=== PATIENT | male | born 1975 | race Caucasian/White ===

== ENCOUNTER 2016-03-26 01:05 | Day surgery (SDC) | payer MEDICARE ==
[2016-03-26] VITALS (15 sets, daily range): BP systolic 96–133; BP diastolic 44–91; PULSE 68–86; RESP 16–22; O2SAT 93–100
[~2016-03-26] VITALS: Ht 180.3 cm; Wt 111.4 kg
[~2016-03-26 01:05] MED LIST: AMN100C PO; ASPI-973 PO; ATRV10T PO; CARV3.122 PO; CETI5TAB28 PO; DIGO250T72 PO; DIVA500T6 PO; FURO80TA83 PO; LORA-302 PO; LOSA25TA21 PO; METF500T4 PO; OXCA600T3 PO; SLO64 PO; SPIR25TA3 PO
[2016-03-26] MEDS ORDERED: 0.9% Sodium Chloride 1,000 ML IV PRN (07:31)
[2016-03-26] MEDS ORDERED: Vancomycin Inj 1,000 MG in IV Premix 1 EACH IV ONE (07:35)
[2016-03-26] MEDS ORDERED: Heparin 5,000 Units/500 mL NS Premix IV ONE (10:07)
[2016-03-26] MEDS ORDERED: 0.9% Sodium Chloride 250 ML ONE (10:08)
[2016-03-26] MEDS ORDERED: Bupivacaine-MPF 0.5% 30 mL Inj ONE (10:08)
[2016-03-26 11:03] LABS: BASOPHILS % (AUTO) 1.2 % (0-3); EOSINOPHILS % (AUTO) 2.3 % (0-5); MONOCYTES % (AUTO) 10.4 % (4-12); Mean Corpuscular Hemoglobin 28.6 pg (27.0-35.0); Mean Corpuscular Volume 85.8 fL (81-100); Platelet Count 212 bil/L (150-400)
[2016-03-26] MEDS ORDERED: CHOL10008 PO (11:15)
[2016-03-26 11:18] LABS: INR 1.12 ratio
[2016-03-26] MEDS ORDERED: Vancomycin 1,000 mg/200 mL D5W IV ONE (13:07)
[2016-03-26] MEDS ORDERED: 0.9% Sodium Chloride 1,000 ML ONE (13:10)
[2016-03-26] MEDS ORDERED: Vancomycin 1,000 mg Inj ONE (13:10)
[2016-03-26] MEDS ORDERED: Water for Injection 50 ML IV ONE (13:10)
[2016-03-26] MEDS ORDERED: fentaNYL-PF 50 mCg/mL 2 mL Inj ONE (13:16)
[2016-03-26] MEDS ORDERED: Ondansetron 2 mg/mL 2 mL Inj IVPUSH PRN (14:10)
[2016-03-26] MEDS ORDERED: HYDROcodone-APAP 5-325 mg Tablet PO PRN (14:10)
[2016-03-26] MEDS: 0.9% Sodium Chloride 1,000 ML IV SCH (14:10)
--- NOTE | 2016-03-26 15:22 | OP ---
[address] [address] OPERATIVE REPORT PATIENT: ERNIE MILLS : 1975 MR#: [id number] ADMIT: 03/26/2016 JOB ID: [id number] DATE OF SURGERY: 03/26/2016 PREOPERATIVE DIAGNOSIS(ES): 1. Severe dilated cardiomyopathy with ejection fraction 10% to 15%. 2. [place] [employer] class II heart failure symptoms. POSTOPERATIVE DIAGNOSIS(ES): 1. Severe dilated cardiomyopathy with ejection fraction 10% to 15%. 2. [place] [employer] class II heart failure symptoms. PROCEDURES PERFORMED: 1. Single-chamber primary prevention implantable cardioverter defibrillator implantation. 2. Left upper extremity venogram. 3. Fluoroscopy. SURGEON: Boni Helms MD, electrophysiology attending. UPPER LINING CEMENTER: Jennifer Gotti. IMPLANTED DEVICES: 1. [employer] pulse generator model [id number], serial #[id number]. 2. RV lead single-coil DF4 [employer] 7122Q, 65 cm, serial #[id number]. ANESTHESIA: Bolus dosing of Versed and fentanyl were utilized for an appropriate level of sedation. INDICATION: The patient is a pleasant 40-year-old man with severe dilated cardiomyopathy and advanced heart failure symptomology whose symptoms and ejection fraction have not improved despite the passage of time and optimal medical management. After discussion of the risks and benefits of primary prevention ICD implantation, he opted to proceed. PROCEDURAL DESCRIPTION: Following informed signed consent, the patient was taken to the EP laboratory in a fasting, nonsedated state where he was prepped and draped in the usual sterile fashion. The left infraclavicular region was infiltrated with 40 cc of a 50/50 mixture of bupivacaine and lidocaine. Once adequate anesthesia had been achieved, a 3 cm transverse incision was performed 2 cm below the left clavicle. Dissection was carried down to the pectoralis fascia. A pocket was then fashioned using a combination of electrocautery and blunt dissection. Once adequate hemostasis had been achieved, attempts to access the left axillary vein over the first rib with a micropuncture needle were unsuccessful. A left upper extremity venogram was performed. Under venographic guidance, the vessel was cannulated with a micropuncture needle to deploy a 0.035, 3-mm J-guidewire. Over this, a 7-Cameroonian tear-away sheath was advanced. Once the guidewire was removed, an active fixation single-coil ICD lead was advanced to the RV outflow tract, ultimately the RV apex. The lead was affixed in position using associated active fixation screw. The lead was connected to external analyzer and demonstrated appropriately sensed R waves, impedance, capture threshold. The lead was checked to 10 V and there was no evidence of diaphragmatic stimulation. Once the position and redundancy of the lead had been confirmed with multiple fluoroscopic views, the lead was anchored to the prepectoralis fascia using associated anchoring sleeve and 2-0 Ethibond sutures. The pocket was then copiously irrigated with antibiotic solution. The lead was connected to a generator, and the generator was placed into the pocket. It was affixed to the floor of the pocket using 1-0 Ti-Cron suture. The incision was then closed with running layers of absorbable suture. The wound was dressed with skin adhesive and a small dressing. At the end of the procedure, needle, sponge and instrument counts were all correct. COMPLICATIONS: None. ESTIMATED BLOOD LOSS: Negligible. DEVICE MEASURED DATA: 11.7 mV, 560 ohms, 0.75 V at 0.5 msec. FINAL PROGRAM PARAMETERS: 1. VVI 40 beats per minute. 2. VF zone at 187 beats per minute. ATP during charge, followed by shocks. 3. VT2 zone at 171 beats per minute. ATP x3, followed by shocks. 4. VT monitor zone at 150 beats per minute. IMPRESSION: Successful single-chamber primary prevention implantable cardioverter defibrillator implantation. PLAN: 1. Stat portable chest x-ray. 2. PA and lateral chest x-ray in the morning. 3. Device interrogation in the morning. 4. IV vancomycin through tomorrow. 5. Doxycycline 100 mg p.o. daily x7 days. 6. Wound check in one week. ATTENDING STATEMENT: Boni Helms MD, electrophysiology attending, was present for and supervised/performed all aspects of this procedure.
--- NOTE | 2016-03-26 16:08 | DRSVH ---
PROCEDURE: X-RAY CHEST ONE VIEW, PORTABLE ([id number]) INDICATIONS: For new leads placed TECHNIQUE: One view of the chest was acquired. COMPARISON: [facility], XA, ICD GENERATOR& LEAD PLACEMENT, 03/26/2016, 13:11. [facility], CR, XR CHEST 1VW (PORTABLE), 12/25/2015, 17:56. FINDINGS: Surgical changes and devices: Single lead cardiac defibrillator is noted. It is unclear whether there may be a kink in the distal portion of the lead wire. Lungs and pleura: No pleural effusions or pneumothorax. Lungs are clear. Mediastinum: Mediastinal contours appear normal. Heart size is enlarged. Bones and chest wall: No suspicious bony lesions. Overlying soft tissues appear unremarkable. IMPRESSION: 1. Questionable kinked cardiac lead as described above. 2. No pneumothorax after recent lead placement. These findings were relayed to Dr. Helms via his animal laboratory technician, Aldair at 4:06 PM on 03/26/16. Dictated by: Josie Agustin M.D. on 03/26/2016 at 16:01 Approved by: Josie Agustin M.D. on 03/26/2016 at 16:06
--- NOTE | 2016-03-26 17:20 | NUR ---
[place] [facility] [place] [facility] [place] [facility] [place]018 via stretcher accompanied by Nyasia. Pt denied pain. 2 IVs in both FA patent. Pt up in bed playing card game with . L arm in sling. ICD site C/D/I. Pt on HH/ADA. Follows Low Salt diet at home. Pt oriented to room and facility. All admit questions answered. Bed in low position, call light in reach.
--- NOTE | 2016-03-26 17:29 | NUR ---
[facility] Patient to [facility] bed 1 at 1445 from greens laborer ICD placement. at bedside. Patient denies pain. No bleeding or hematoma at left chest wall incision. Chest x ray and ECG 12 complete. Transferred to room 3035 by bed at 1700. report to receiving RN.
--- NOTE | 2016-03-26 18:15 | NUR ---
Correction: Patient transferred to room 3010
[2016-03-26] MEDS ORDERED: Divalproex (QD) 500 mg ER24 Tablet PO SCH (20:55)
[2016-03-26] MEDS ORDERED: LORazepam 0.5 mg Tablet PO PRN (20:55)
[2016-03-26] MEDS ORDERED: OXcarbazepine 300 mg Tablet PO SCH (21:00)
[2016-03-27] MEDS: 0.9% Sodium Chloride 1,000 ML IV SCH ×2 (00:10→10:10)
[2016-03-27 01:12] VITALS: BP 114/72; PULSE 85; RESP 18; O2SAT 95
[2016-03-27] MEDS ORDERED: Vancomycin Inj 1,000 MG in IV Premix 1 EACH IV ONE (02:10)
[2016-03-27 05:31] VITALS: PULSE 89
[2016-03-27 05:54] VITALS: BP 128/87; PULSE 85; RESP 18; O2SAT 96
[2016-03-27 08:00] VITALS: PULSE 77
[2016-03-27] MEDS ORDERED: Magnesium Chloride SR 64 mg ER24 Tablet PO SCH (08:30)
--- NOTE | 2016-03-27 08:49 | PCM.DIMED ---
Discharge Instructions Date of Service Mar 27, 2016 Dates of Hospitalization Discharge Diagnosis Discharge Diagnosis Nonischemic Cardiomyopathy Sleep Apnea Diabetes Diet Low fat, Low Sodium, Heart Healthy, Diabetic Activity Other (Keep incision dry for one day. Do not extend left elbow high above shoulder for one month. Do not lift, push or pull more than 10 lbs with the left arm for one month.) Call your provider Fever or Chills, Bleeding, Excessive diarrhea Patient Instructions Follow-up in: 1 week Mid-level Provider (F9): Peter Badillo PA-C Follow-up with Mid-level in: 6 weeks Peter Badillo PA-C Mar 27, 2016 08:49
[2016-03-27] MEDS ORDERED: DOXY100C2 PO (08:54)
[2016-03-27] MEDS ORDERED: HYDR-4003 PO (08:54)
--- NOTE | 2016-03-27 09:34 | DIS ---
[address] [address] DISCHARGE SUMMARY PATIENT: ERNIE MILLS : 1975 MR#: [id number] ADMIT: 03/26/2016 JOB ID: [id number] DIS: REASON FOR ADMISSION: Defibrillator implant. CHIEF COMPLAINT: Exertional dyspnea. BRIEF HISTORY: The patient is a pleasant 40-year-old man with a severe nonischemic dilated cardiomyopathy and an LV ejection fraction of 10% to 15%. He has been treated with heart failure medications for three months but his LV function has not improved significantly. He was advised of his increased risk for cardiac arrest, and plans were made for a defibrillator implant as a primary prevention of sudden cardiac . COURSE IN HOSPITAL: The patient was admitted through the [facility] and taken to the catheterization laboratory, where he received a single-lead defibrillator system without incident. He was taken back to the [facility] for recovery from sedation and then transferred [place] [facility] [place] and telemetry monitoring. He did well overnight and in the morning was ambulatory without difficulty. He felt well for discharge home and had no complaints of lightheadedness, dizziness, dyspnea, or chest pain. The ICD site is closed and dry, and there is no hematoma. Device evaluation shows excellent capture and sensing thresholds and no arrhythmias. Chest x-ray shows good lead position and no pneumothorax. DISPOSITION: The patient was discharged home in good condition, with a followup appointment at the [facility] Cardiology office in one week. He was asked to not extend his left elbow high above his shoulder for one month and to not lift, push, or pull more than 10 pounds with the left arm for one month. He will follow his diabetic, heart healthy, low sodium, low fat diet. DISCHARGE MEDICATIONS: 1. Doxycycline 100 mg daily for 1 week. 2. Hydrocodone/acetaminophen 5/325 mg 1 tablet q.4 h. p.r.n. pain, quantity of 14, with no refills. 3. Amantadine 100 mg b.i.d. 4. Aspirin 81 mg daily. 5. Atorvastatin 10 mg daily. 6. Carvedilol 3.125 mg b.i.d. 7. Cetirizine 10 mg q.h.s. 8. Vitamin D3, 1000 units daily. 9. Digoxin 250 mcg daily. 10. Divalproex 1500 mg daily. 11. Furosemide 80 mg daily. 12. Lorazepam 0.5-1.0 mg p.o. q.h.s. p.r.n. insomnia. 13. Losartan 25 mg daily. 14. Magnesium chloride 64 mg daily. 15. Metformin 500 mg b.i.d. 16. Trileptal 1800 mg q.h.s. 17. Spironolactone 25 mg daily. FINAL DIAGNOSES: 1. Severe nonischemic cardiomyopathy. 2. Sleep apnea. 3. Diabetes mellitus. 4. Bipolar disorder.
--- NOTE | 2016-03-27 10:09 | DRSVH ---
PROCEDURE: X-RAY CHEST, TWO VIEWS ([id number]) INDICATIONS: For new lead placement TECHNIQUE: 2 views of the chest were acquired. COMPARISON: [facility], CR, XR CHEST 1VW (PORTABLE), 03/26/2016, 14:55. FINDINGS: Surgical changes and devices: Stable positioning left chest AICD. Lungs and pleura: No pleural effusions or pneumothorax. Lungs are clear. Mediastinum: Mediastinal contours are normal. Heart size is normal. Bones and chest wall: No suspicious bony abnormalities. Soft tissues appear unremarkable. IMPRESSION: Stable chest post AICD placement. Dictated by: Titus Donnelly RR Interpreted: Magnolia Lanier MD on 03/27/2016 at 10:09 Transcribed by: KEARA on 03/27/2016 at 10:09 Approved by: Magnolia Lanier M.D. on 03/27/2016 at 15:12
[2016-03-27 10:41] VITALS: BP 120/87; PULSE 89; RESP 19; O2SAT 96
--- NOTE | 2016-03-27 10:59 | NUR ---
Discharge Pt discharged home with via private vehicle. Pt and verbalized understanding of discharge and Rx instructions, personal belongings accounted for and left with pt.
== END 2016-03-27 11:10 | disposition home or self-care (01) ==
LOC: SPI 01:05 → MPC 18:00 → SPI 03-27 11:10
PROVIDERS: ATTEND Internal Medicine Cardiovascular Disease
DX: I42.0 Dilated cardiomyopathy (principal); Z00.6 Encounter for examination for normal comparison and control in clinical research program; E11.9 Type 2 diabetes mellitus without complications; G47.30 Sleep apnea, unspecified; F31.9 Bipolar disorder, unspecified; Z79.82 Long term (current) use of aspirin; Z79.84 Long term (current) use of oral hypoglycemic drugs
CPT/HCPCS: 33249; 36415; 71010; 71020; 80048; 85025; 85610; 93005; C1722; C1769; C1777; C1892; J1644; J2250; J3370; J7030; J7050; Q9967

== ENCOUNTER 2016-11-26 14:26 | Emergency (ER) | payer MEDICARE ==
[~2016-11-26] VITALS: Ht 180.3 cm; Wt 125.0 kg
[~2016-11-26 14:26] MED LIST changes: +CHOL10008 PO; +DOXY100C2 PO; +HYDR-4003 PO
--- NOTE | 2016-11-26 14:30 | ED.REPORT ---
HPI-Chest Pain 40 and Over Date of Service Nov 26, 2016 ED Provider: Kaiden Weinberg Patient is a 41 year old male with a hx of CHF, AICD placement, and HTN who presents to the ED via EMS complaining of intermittent chest pain while sitting in an [employer] meeting this afternoon. Associated symptoms include L arm numbness from the elbow down. He denies headache, SOB, or any other symptoms. He is not on blood thinners. He took 81mg x4 of ASA prior to EMS arrival. His table hand is Dr. Sumner. Pt does not feel like his AICD went off. Nursing Notes Stated Complaint: CHEST PAIN Nursing Notes Reviewed: Yes Allergies: Coded Allergies: paliperidone (Verified Adverse Reaction, Severe, Cannot walk/talk, 03/26/16 ) TAPE (Verified Adverse Reaction, Unknown, Rash, 03/26/16) Scheduled Amantadine (Amantadine) 100 Mg Cap 100 MG PO BID Aspirin (Aspirin) 81 Mg Tablet 81 MG PO DAILY Atorvastatin (Lipitor) 10 Mg Tab 10 MG PO DAILY Carvedilol (Carvedilol) 3.125 Mg Tablet 3.125 MG PO BID Digoxin (Digoxin) 250 Mcg Tablet 250 MCG PO DAILY Divalproex (Divalproex) 500 Mg Tablet.dr 1,500 MG PO DAILY Swallowed whole without chewing to avoid local irritation of the mouth and throat. Doxycycline Hyclate (Doxycycline Hyclate) 100 Mg Capsule 100 MG PO DAILY Furosemide (Lasix) 80 Mg Tablet 80 MG PO DAILY Losartan Potassium (Losartan Potassium) 25 Mg Tablet 25 MG PO DAILY Magnesium Chloride (Slow-Mag) 64 Mg Tablet 64 MG PO DAILY Metformin (Metformin) 500 Mg Tablet 500 MG PO BID Oxcarbazepine (Trileptal) 600 Mg Tablet 1,800 MG PO HS Spironolactone (Spironolactone) 25 Mg Tablet 25 MG PO DAILY Scheduled PRN Cetirizine (Cetirizine) 5 Mg Tablet 10 MG PO HS PRN PRN allergy Hydrocodone-Acetaminophen 5-325 mg (Hydrocodone-Acetaminophen 5-325 mg) 1 Each Tablet 1 TABLET PO Q4H PRN PRN For Pain Lorazepam (Ativan) 0.5 Mg Tablet 0.5-1 MG PO HS PRN PRN For Insomnia Miscellaneous Medications Cholecalciferol (Vitamin D3) (Vitamin D3) 1,000 Unit Tab.chew 1,000 UNIT PO General Time Seen by MD: 14:30 Chief Complaint Chest pain Hx Obtained From: Patient Arrived By: Ambulance Sudden in Onset?: Yes Onset Occurred: 1 - 4 hours ago Symptom Duration: Intermittent Quality: Painful Severity: Current: Mild Severity: Maximum: Moderate Risk Factors )( CAD Risk Stratification Hypertension Risk factors reviewed )( TAD Risk Stratification HypertensionNo Risk factors reviewed )( PE Risk Stratification No , No Risk factors reviewed Past Medical History Past Medical History Bipolar Disorder Severe Anxiety Depression History of cutting ADHD DM Type 2 Asthma seizures as CHF PTSD EtOH abuse Reports: Hypertension Past Surgical History Urethra widening. Smoking History Former Smoker Social History This patient is a 36-year-old male diagnosed with bipolar disorder and recent severe anxiety disorder with rapidly re-evolved agoraphobia. The patient has a history of alcoholism and is in full remission with a sobriety date of January 26, 2009 and has been abstinent of tobacco for 7 years. Previous suicide attempt Alcohol Use: In recovery Drug Use: In recovery Other Social History: Good social support, Occupation [employer] Status Independent Review of Systems Respiratory: Denies: Shortness of breath Cardiovascular: Reports: Chest pain Neurologic: Reports: Numbness (L arm ), Denies: Headache Complete sys rev & neg: except as marked. Physical Exam Initial Vital Signs Vital Signs (First) Date Time Temp Pulse Resp B/P Pulse Ox O2 Delivery O2 Flow Rate FiO2 11/26/16 14:43 36.9 74 12 150/93 98 Room Air Initial VS: Reviewed, Vital signs normal Head / Eyes: Atraumatic, Normocephalic Neck: Full range of motion Skin: Warm, Dry Psychiatric: Behavior normal General/Constitutional: Awake, Alert Appears nervous Respiratory / Chest: Atraumatic, Breath sounds NL, Breath sounds = bilat, No respiratory distress Cardiovascular: Heart rate NL, Regular rhythm, Heart sounds NL Abdomen: Atraumatic, Soft, Non-tender Neurologic: Oriented X3, Speech NL, No motor deficits, CN II - XII intact, Cerebellar NL, Memory NL Patchy paresthesia along the lateral aspect of the left forearm and thumb Interpretation & Diagnostics Lab Results Interpretation Result Diagram: 11/26/16 1504 Test 11/26/16 15:04 White Blood Count 6.2th/mm3 (3.8-10.1) Red Blood Count 4.87mil/mm3 (4.40-5.80) Hemoglobin 14.8g/dL (13.8-17.2) Hematocrit 41.2% (41.0-50.0) Mean Corpuscular Volume 84.6fL (81-100) Mean Corpuscular Hemoglobin 30.4pg (27.0-35.0) Mean Corpuscular Hemoglobin Concent 35.9% (32.0-37.0) Red Cell Distribution Width 12.8% (12.3-15.4) Platelet Count 188bil/L (150-400) Neutrophils (%) (Auto) 63.5% (40-74) Lymphocytes (%) (Auto) 25.6% (14-46) Monocytes (%) (Auto) 9.2% (4-12) Eosinophils (%) (Auto) 0.6% (0-5) Basophils (%) (Auto) 0.6% (0-3) ECG Interpretation ECG Interpretation: Sinus rate 76 Left anterior fascicular block LVH Time: 14:57 Interpreted by: ED physician Re-Eval/Medical Decision Med Decision/Clinical Course Patient presents with chest pain radiating down the left arm with associated symptom of inability to use the left arm prior to arrival, neurologic evaluation at this point is nearly normal and the majority of the symptoms have resolved.. Care transferred to Dr. Elizabeth Discharge & Departure Shift Change Sign-Out Patient Care Transferred: Yes Discussed Complaint(s): Yes Laboratory Evaluation: Ordered, not yet done Imaging Studies: Ordered, not yet done Transfer of care to Dr. Elizabeth at 1500 Primary Impression: Chest pain Chest pain type: unspecified Qualified Code: R07.9 - Chest pain, unspecified Discharge Condition All VS Reviewed: Yes Condition: Stable Referrals: Tamra Das MD (PCP) Care Transferred to: Dr. Elizabeth Care Transferred at: 15:00 Scribe Attestation Portions of this note were transcribed by John Doherty. I, Dr. Weinberg personally performed the history, physical exam and medical decision-making; I reviewed and confirmed the accuracy of the information in the transcribed note. Signed by: Cody Seivlla, 11/26/16 copies to: Tamra Das MD, Timothy S DO Nov 26, 2016 14:30 JOHN DOHERTY Nov 26, 2016 14:40
[2016-11-26 14:43] VITALS: BP 150/93; PULSE 74; RESP 12; O2SAT 98
[2016-11-26 14:45] VITALS: BP 165/91; PULSE 78; RESP 16; O2SAT 97
[2016-11-26] MEDS ORDERED: Ondansetron 2 mg/mL 2 mL Inj IVPUSH ONE (14:45)
[2016-11-26 15:10] LABS: BASOPHILS % (AUTO) 0.6 % (0-3); EOSINOPHILS % (AUTO) 0.6 % (0-5); MONOCYTES % (AUTO) 9.2 % (4-12); Mean Corpuscular Hemoglobin 30.4 pg (27.0-35.0); Mean Corpuscular Volume 84.6 fL (81-100); NEUTROPHILS % (AUTO) 63.5 % (40-74); Platelet Count 188 bil/L (150-400)
[2016-11-26 15:30] VITALS: BP 134/69; PULSE 84; RESP 14; O2SAT 97
[2016-11-26 15:50] LABS: TROPONIN T < 0.010 ug/L (0.0-0.011)
[2016-11-26 15:59] LABS: Creatine Kinase 105 U/L (21-232); Magnesium 1.8 mg/dL (1.6-2.6)
--- NOTE | 2016-11-26 16:00 | DRSVH ---
PROCEDURE: CT BRAIN WITHOUT CONTRAST ([id number]) INDICATIONS: resolving left arm weakness/numbness TECHNIQUE: Noncontrast 4.5 mm thick angled axial sections acquired from the foramen magnum to the vertex, with c oronal reformats. COMPARISON: [facility], CT, CT BRAIN WO CON, 12/26/2015, 19:40. FINDINGS: Image quality: Excellent. CSF spaces: Basal cisterns are patent. No extra-axial fluid collections. Ventricles are normal in size and shape. Brain: No midline shift. No intracranial masses or hemorrhage. Bazan-white matter interface is norm al. Internal carotid artery atherosclerosis noted. Skull and face: Calvarium and visualized facial bones are intact, without suspicious lesions. Sinuses: Visualized sinuses and mastoids are clear. IMPRESSION: No acute intracranial disease process. Dictated by: Ruby Gates MD, PhD on 11/26/2016 at 14:56 Approved by: Ruby Gates MD, PhD on 11/26/2016 at 14:59
--- NOTE | 2016-11-26 16:09 | DRSVH ---
PROCEDURE: X-RAY CHEST ONE VIEW, PORTABLE ([id number]) INDICATIONS: chest pain TECHNIQUE: One view of the chest was acquired. COMPARISON: [facility], CR, XR CHEST 1VW (PORTABLE), 03/26/2016, 14:55. FINDINGS: Surgical changes and devices: Single lead cardiac pacer is stable in appearance compared to prior exa mination. Loop in the pacer lead is stable. Lungs and pleura: No pleural effusions or pneumothorax. Lungs are clear. Mediastinum: Mediastinal contours appear normal. Heart size is normal. Bones and chest wall: No suspicious bony lesions. Overlying soft tissues appear unremarkable. IMPRESSION: No acute cardiopulmonary disease process. Dictated by: Ruby Gates MD, PhD on 11/26/2016 at 15:06 Approved by: Ruby Gates MD, PhD on 11/26/2016 at 15:07
[2016-11-26 17:42] VITALS: BP 124/72; PULSE 71; RESP 12; O2SAT 99
[2016-11-26 19:17] VITALS: BP 149/90; PULSE 81; RESP 18; O2SAT 97
[2016-11-26 19:43] VITALS: BP 144/68; PULSE 85; RESP 18; O2SAT 98
== END 2016-11-26 19:43 ==
LOC: SED 14:26
DX: R07.9 Chest pain, unspecified (principal); R20.0 Anesthesia of skin; I11.0 Hypertensive heart disease with heart failure; E11.59 Type 2 diabetes mellitus with other circulatory complications; I50.9 Heart failure, unspecified; J45.909 Unspecified asthma, uncomplicated; F90.9 Attention-deficit hyperactivity disorder, unspecified type; F31.9 Bipolar disorder, unspecified; F41.8 Other specified anxiety disorders; F10.10 Alcohol abuse, uncomplicated; Z79.82 Long term (current) use of aspirin; Z79.84 Long term (current) use of oral hypoglycemic drugs; Z87.891 Personal history of nicotine dependence; Z88.8 Allergy status to other drugs, medicaments and biological substances; Z91.048 Other nonmedicinal substance allergy status